=== PATIENT | male | born 1945 | race Caucasian/White ===

== ENCOUNTER 2021-09-15 10:21 | Outpatient (CLI) | payer OTHER | END 2021-09-15 10:22 | disposition home or self-care (01) | LOC: CSHLAB 10:21 | PROVIDERS: ATTEND Internal Medicine Gastroenterology | DX: Z20.822 Contact with and (suspected) exposure to COVID-19 (principal) | CPT/HCPCS: 87811 ==

== ENCOUNTER 2021-09-20 10:12 | Day surgery (SDC) | payer OTHER ==
[2021-09-16 15:16] VITALS: BMI 28.7
[2021-09-20] MEDS ORDERED: Lidocaine 1% MPF 2 ML VIAL ONE (11:40)
[2021-09-20] MEDS ORDERED: PROPOFOL 0 ML ONE (11:41)
[2021-09-20] MEDS ORDERED: Lidocaine 2% MPF 10 ML AMP (For Epidural Use) ONE (12:01)
[2021-09-20] MEDS ORDERED: PROPOFOL 20 ML ONE ×3 (12:25→12:57)
[2021-09-20] MEDS ORDERED: PROPOFOL 40 ML ONE (13:03)
== END 2021-09-20 13:57 | disposition home or self-care (01) ==
LOC: CSHSDC 10:12
PROVIDERS: ATTEND Internal Medicine Gastroenterology
PROC: 0DJD8ZZ Inspection of Lower Intestinal Tract, Via Natural or Artificial Opening Endoscopic (ICD-10-PCS; principal; 2021-09-20)
DX: K57.30 Diverticulosis of large intestine without perforation or abscess without bleeding (principal); K64.9 Unspecified hemorrhoids; R06.89 Other abnormalities of breathing; I10 Essential (primary) hypertension; E11.9 Type 2 diabetes mellitus without complications; E78.5 Hyperlipidemia, unspecified; Z20.822 Contact with and (suspected) exposure to COVID-19; F17.210 Nicotine dependence, cigarettes, uncomplicated
CPT/HCPCS: J2704